=== PATIENT | female | born 1955 | race Caucasian/White ===

== ENCOUNTER 2017-10-30 09:11 | Outpatient (REF) | payer OTHER, SELFPAY ==
[2017-10-30 21:43] LABS: ALT 50 U/L (12-78); AST 28 U/L (15-37); Alkaline Phosphatase 77 U/L (46-116); Anion Gap 5.6 mmol/L (3-11); BUN 9 mg/dL (7-18); Bilirubin, Total 0.5 mg/dL (0.2-1.0); CO2 30.4 mmol/L (21.0-32.0); CREATININE 0.76 mg/dL (0.55-1.02); Chloride 104 mmol/L (98-107); Cholesterol 178 mg/dL (50-200); Glucose 98 mg/dL (70-100); HDL Cholesterol 42 mg/dL (40-60); LDL CHOLESTEROL 116 mg/dL (<100); Potassium 4.5 mmol/L (3.5-5.1); Sodium 140 mmol/L (136-145); TSH 2.97 uIU/mL (0.358-3.74); Total Protein 7.4 g/dL (6.4-8.2); Triglyceride 156 mg/dL (30-150)
== END 2017-10-30 09:31 ==
LOC: NCHCN 09:11
PROVIDERS: PCP Physician Assistant Medical; Visit Provider Physician Assistant Medical
DX: E03.9 Hypothyroidism, unspecified (principal); E78.5 Hyperlipidemia, unspecified
CPT/HCPCS: 80053; 80061; 83721; 84443

== ENCOUNTER 2018-07-30 00:32 | Outpatient (CLI) | payer OTHER, SELFPAY ==
--- NOTE | 2018-07-30 08:52 | DI.MAMMO_ITS ---
SYMPTOM/DIAGNOSIS: SCREENING, [facility], Z00.00 MAMMOGRAMS: Mammograms were interpreted according to the usual protocol including computer analysis with CAD system, tomosynthesis and C view imaging. Comparison is with prior examinations. No suspicious masses or microcalcifications are seen. There is focal asymmetry in the medial left breast seen on the craniocaudad view. This area should be further evaluated with a spot compression view. Ultrasound may be indicated at that time. IMPRESSION: Additional views of the left breast as described above. Category 0, breast density C. MQSA ASSESSMENT OF FINDINGS: Incomplete: Needs additional imaging evaluation. Category 0. Patient will receive a letter notifying them of these results. Bi-RADS category C. The breasts are heterogeneously dense, which may obscure small masses.
== END 2018-07-30 00:52 ==
PROVIDERS: PCP Physician Assistant Medical; Visit Provider Physician Assistant Medical
DX: Z00.00 Encounter for general adult medical examination without abnormal findings (principal); Z12.31 Encounter for screening mammogram for malignant neoplasm of breast; R92.8 Other abnormal and inconclusive findings on diagnostic imaging of breast
CPT/HCPCS: 77063; 77067

== ENCOUNTER 2018-08-08 01:10 | Outpatient (CLI) | payer OTHER, SELFPAY ==
--- NOTE | 2018-08-08 14:16 | DI.MAMMO_ITS ---
SYMPTOMS/DIAGNOSIS: F/U ABNORMAL MAMMO, FOCAL AREA OF ASYMMETRY MEDIAL LEFT BREAST ON CC VIEW ADDITIONAL VIEW OF THE LEFT BREAST: Additional images are interpreted according to the usual protocol including tomosynthesis and 2D imaging. A spot compression view with tomography was performed for a questioned area of nodularity on the recent exam of July,. No persistent abnormality is seen. There has been no change when compared with previous exams. The findings are consistent with overlying fibroglandular tissue. IMPRESSION: Category 1, negative mammogram. Yearly screening mammography is recommended. Breast density category C. MQSA ASSESSMENT OF FINDINGS: Negative. Category 1. Patient will receive a letter notifying them of these results. Bi-RADS category C. The breasts are heterogeneously dense, which may obscure small masses.
== END 2018-08-08 01:30 ==
PROVIDERS: PCP Physician Assistant Medical; Visit Provider Physician Assistant Medical
DX: Z12.31 Encounter for screening mammogram for malignant neoplasm of breast (principal); R92.8 Other abnormal and inconclusive findings on diagnostic imaging of breast; N64.59 Other signs and symptoms in breast
CPT/HCPCS: 77063; 77067

== ENCOUNTER 2019-01-02 13:06 | Outpatient (REF) | payer OTHER, SELFPAY ==
[2019-01-02 21:03] LABS: ALT 55 U/L (14-59); AST 24 U/L (15-37); Albumin 4.3 g/dL (3.4-5.0); Alkaline Phosphatase 87 U/L (46-116); Anion Gap 9.8 mmol/L (3-11); BUN 6 mg/dL (7-18); Bilirubin, Total 0.4 mg/dL (0.2-1.0); CO2 27.2 mmol/L (21.0-32.0); CREATININE 0.75 mg/dL (0.55-1.02); Calcium 9.6 mg/dL (8.5-10.1); Calculated LDL 128 mg/dL; Chloride 104 mmol/L (98-107); Cholesterol 207 mg/dL (50-200); Glucose 104 mg/dL (70-100); HDL Cholesterol 42 mg/dL (40-60); Potassium 4.5 mmol/L (3.5-5.1); Sodium 141 mmol/L (136-145); TSH 3.93 uIU/mL (0.36-3.74); Total Protein 7.8 g/dL (6.4-8.2); Triglyceride 189 mg/dL (30-150)
== END 2019-01-02 13:26 ==
LOC: NCHCN 13:06
PROVIDERS: PCP Physician Assistant Medical; Visit Provider Physician Assistant Medical
DX: E78.5 Hyperlipidemia, unspecified (principal); E03.9 Hypothyroidism, unspecified
CPT/HCPCS: 80053; 80061; 84443

== ENCOUNTER 2019-02-27 09:15 | Outpatient (REF) | payer OTHER, SELFPAY ==
[2019-02-27 20:10] LABS: TSH 1.25 uIU/mL (0.36-3.74)
[2019-02-27 20:16] LABS: Hemoglobin A1C 6.3 % (3.8-5.6)
== END 2019-02-27 09:35 ==
LOC: NCHCN 09:15
PROVIDERS: PCP Physician Assistant Medical; Visit Provider Physician Assistant Medical
DX: Z00.00 Encounter for general adult medical examination without abnormal findings (principal); E03.9 Hypothyroidism, unspecified; R73.9 Hyperglycemia, unspecified
CPT/HCPCS: 83036; 84443

== ENCOUNTER 2019-03-11 02:31 | Outpatient (CLI) | payer OTHER, SELFPAY ==
--- NOTE | 2019-03-11 14:00 | NS.NUTBLAN_ITS ---
Description: Tamia came to my office today for medical nutrition therapy for prediabetes. Recent A1C=6.3%, strong family history of NIDDM. Ht: 5'4 142 LBS, BMI 24. reports losing 8 lbs in last 4 weeks. Tamia works 20 hours per week and goes to gym 3-4 times a week. Diet Recall indicates overall well balanced diet with mostly whole food choices. Reviewed balanced diet for optimal blood sugar and weight management. Provided educational material on Mediterranean Diet with emphasis on fruits, vegetables, lean protein, legumes and unsaturated fats. Encouraged continued exercise 4-5 times weekly. Suspect if Tamia keeps her weight at 135-140 lbs and continues to exercise regularly and follows recommended diet that A1C will normalize. No follow up visit made at this time.
== END 2019-03-11 02:51 ==
PROVIDERS: PCP Physician Assistant Medical; Visit Provider Physician Assistant Medical
DX: R73.03 Prediabetes (principal); Z71.3 Dietary counseling and surveillance
CPT/HCPCS: 97802

== ENCOUNTER 2020-01-08 10:55 | Outpatient (REF) | payer OTHER, MEDICAID, SELFPAY ==
[2020-01-08 20:50] LABS: Hemoglobin A1C 5.9 % (<5.7)
[2020-01-08 21:20] LABS: ALT 42 U/L (14-59); AST 21 U/L (15-37); Albumin 4.3 g/dL (3.4-5.0); Alkaline Phosphatase 77 U/L (46-116); BUN 11 mg/dL (7-18); Bilirubin, Total 0.4 mg/dL (0.2-1.0); CREATININE 0.65 mg/dL (0.55-1.02); Calcium 9.4 mg/dL (8.5-10.1); Chloride 104 mmol/L (98-107); Glucose 88 mg/dL (74-106); Potassium 4.6 mmol/L (3.5-5.1); Sodium 141 mmol/L (136-145); TSH 2.51 uIU/mL (0.36-3.74); Total Protein 7.9 g/dL (6.4-8.2)
[2020-01-08 21:35] LABS: Calculated LDL 110 mg/dL (<100); Cholesterol 180 mg/dL (<200); HDL Cholesterol 44 mg/dL (40-60); Triglyceride 133 mg/dL (<150)
== END 2020-01-08 11:15 ==
LOC: NCHCN 10:55
PROVIDERS: PCP Nurse Practitioner; Visit Provider Physician Assistant Medical
DX: E78.5 Hyperlipidemia, unspecified (principal); E03.9 Hypothyroidism, unspecified
CPT/HCPCS: 80053; 80061; 83036; 84443

== ENCOUNTER 2020-02-09 00:09 | Outpatient (CLI) | payer OTHER, MEDICAID, SELFPAY ==
--- NOTE | 2020-02-09 11:16 | DI.MAMMO_ITS ---
EXAM: MG MAMMO SCREENING CLINICAL HISTORY: SCREENING,Z12.89 TECHNIQUE: Bilateral full field digital CC and MLO mammographic images were obtained with 3D tomosyn thesis and utilizing computer aided detection (CAD). COMPARISON: Available for comparison. FINDINGS: Masses/Architectural Distortion: None seen. Microcalcifications: No suspicious pleomorphic-type are seen. Skin Thickening/Nipple Retraction: None. IMPRESSION: 1. No significant interval change with no specific features of malignancy noted. 2. Unless there is more urgent need, screening mammography is recommended, as per [place] [employer] guidelines. BI-RADS Category 1 - Negative Breast Density - Category C - Heterogeneously dense Breast density category C or D implies that the patient has dense breast tissue. Dense breast tissue is very common and is not abnormal but dense breast tissue can make it harder to find cancer on a ma mmogram. Also, dense breast tissue may increase their breast cancer risk. This information about the result of the mammogram report was provided to the patient to raise their awareness. Use this report when you speak with the patient about their risks for breast cancer, which includes their family hist ory. At that time, you may recommend for more screening tests (Ultrasound or MRI) as they might be us eful based on their risk. A negative radiographic report should not delay biopsy if a dominant or clinically suspicious mass is present. Up to ten percent of cancers are not identified on mammography. A negative report may reinforce clinical impression. Adenosis and dense breasts may obscure an underlying neoplasm. False positive reports average 6 to 10%. Patient will receive a letter notifying them of these results.
== END 2020-02-09 00:29 ==
PROVIDERS: PCP Nurse Practitioner; Visit Provider Physician Assistant Medical
DX: Z12.31 Encounter for screening mammogram for malignant neoplasm of breast (principal)
CPT/HCPCS: 77063; 77067

== ENCOUNTER 2020-04-13 21:36 | Outpatient (REF) | payer OTHER, MEDICAID, SELFPAY ==
[2020-04-14 13:17] LABS: COVID-19 RT-PCR UVMMC Result Negative (Negative)
== END 2020-04-13 21:37 | disposition home or self-care (01) ==
LOC: LBN 21:36
PROVIDERS: PCP Nurse Practitioner; Visit Provider Nurse Practitioner Family
DX: Z20.822 Contact with and (suspected) exposure to COVID-19 (principal)
CPT/HCPCS: U0003

== ENCOUNTER 2020-06-23 18:40 | Emergency (ER) | payer OTHER, SELFPAY ==
[2020-06-23 18:47] VITALS: BP 156/91; PULSE 100; RESP 20; TEMP 36.5; O2SAT 98
--- NOTE | 2020-06-23 20:07 | DI.RAD_ITS ---
Exam(s) XR SHOULDER LT COMPLETE 2+V EXAM: XR SHOULDER LT COMPLETE 2+V CLINICAL HISTORY: fall injury/pain. TECHNIQUE: 2D digital imaging was performed. COMPARISON: No exams were available for comparison FINDINGS: BONES: No acute fracture is present. No bony destructive lesion is seen. JOINTS: There is an anterior shoulder dislocation. SOFT TISSUE: Normal. IMPRESSION: Left anterior shoulder dislocation. DATA REPOSITORY: RADIATION DOSE DELIVERED:
--- NOTE | 2020-06-23 20:15 | DI.RAD_ITS ---
Exam(s) XR SHOULDER LT COMP POST REDUC EXAM: XR SHOULDER LT COMP POST REDUC CLINICAL HISTORY: post reduction. TECHNIQUE: 2D digital imaging was performed. COMPARISON: No exams were available for comparison FINDINGS: BONES: No acute fracture is present. No bony destructive lesion is seen. JOINTS: There has been successful reduction of the glenohumeral joint. Mild degenerative changes are seen at the acromioclavicular joint. SOFT TISSUE: Normal. IMPRESSION: Post reduction films show normal alignment of the glenohumeral joint. DATA REPOSITORY: RADIATION DOSE DELIVERED:
--- NOTE | 2020-06-23 20:19 | DI.VRAD_ITS ---
PROCEDURE INFORMATION: Exam: XR Left Shoulder Exam date and time: 06/23/2020 8:04 PM Age: 64 years old Clinical indication: Other: Fall injury/pain TECHNIQUE: Imaging protocol: XR Left shoulder. Views: 2 or more views. COMPARISON: No relevant prior studies available. FINDINGS: Bones/joints: The humerus is displaced inferiorly, medially, and anteriorly relative to the glenoid fossa. No fracture seen. The AC joint appears intact. Soft tissues: Normal. IMPRESSION: Anterior/inferior dislocation of the humerus as described above. Dictated and Authenticated by: Cain Landin MD. Ordering:ODILIA Rooney MD
--- NOTE | 2020-06-23 20:24 | ED.GENADUL_ITS ---
Discharge Plan Disposition Patient Disposition: HOME Condition: Stable Discharge Details Clinical Impression: Dislocation, shoulder Primary Care Provider: Kimmy Monk ED Provider: Toribio Landon Home Meds and New Rx's Prescriptions: Continued ropinirole 1 mg tablet 1 mg PO BID Qty: 180 RF: 0 simvastatin 20 mg tablet 20 mg PO .QHS Qty: 90 RF: 4 omeprazole 20 mg capsule,delayed release(DR/EC) 20 mg PO DAILY Qty: 90 RF: 4 levothyroxine 75 mcg capsule 75 mcg PO DAILY Qty: 90 RF: 4 venlafaxine 37.5 mg capsule,extended release 24hr 37.5 mg PO DAILY Qty: 90 RF: 4 amoxicillin-pot clavulanate [Augmentin] 875-125 mg tablet 1 tab PO BID Qty: 14 RF: 0 Med Offloader Brace Qty: 1 RF: 0 multivitamin [Daily Vitamin] 1 EACH tablet 1 tab PO DAILY RF: 0 Discharge Instructions Instructions: Shoulder Dislocation (ED) Additional Instructions: It appears as though you dislocated your shoulder during the fall today. I was able to easily reduce your shoulder here in the ER and your postreduction films looks normal. I have placed you on the orthopedic list to help expedite outp atient orthopedic follow-up. Wear sling until reevaluation with orthopedics sometime next week, be sure to do passive range of motion at least 4 times a day to avoid a frozen shoulder. [id number] Tylenol and/or Motrin as directed for discomfort. Cool and/or warm compresses every 2 hours for 20 minutes. Please watch for new or worsening symptoms and return to the ER for any concerns. Referrals: Marcin Howe MD [ [facility] STAFF PHYSICIAN] - Medical Decision Making 64-year-old female, [id number], presents having just fallen on a outstretched arm injuring her left shoulder. Clinically and concerned of a dislocation but would like to obtain x-ray to confirm my suspicion versus bony abnormality. Neuro, vascular, tendon intact X-ray of left shoulder reviewed by me and confirmed by radiology as anterior- inferior dislocation of the humerus Discussed x-ray findings with patient. Patient reports that her pain at this time is mild and she drove herself to the hospital. We discussed reduction options, she is agreeable to attempting reduction without medication or conscious sedation Please see the procedural section for the reduction. Patient tolerated well without complication. Postreduction film reveals successful reduction. Sling applied. Patient placed on the orthopedic list to help expedite outpatient care. Standard discharge and return precautions given. Patient has no additional questions or concerns and is comfortable discharge at this time. Medical Records Medical records reviewed: Yes I reviewed the patient's medical records. Imaging Data Radiologic Study: Attestation: I personally reviewed and interpreted this imaging study as follows: Imaging: X-Ray Radiologist's impression: Initial film reveals a inferior-anterior dislocation. Postreduction film reveals successful reduction. HPI General Mode of arrival: ambulatory . Date/Time Provider Initiated Documentation: 06/23/20 18:49 . Limitations to Documentation: no limitations . Information obtained by: patient . HPI Narrative: This is a 64-year-old female, past medical history that includes anxiety, GERD, hyperlipidemia, hypothyroidism, IBS, who is right-hand dominant. She states that just prior to arrival she had a mechanical trip and fall on a carpet when walking into the [facility]. She states that she landed on her outstretched hand and now has mild left shoulder pain. Denies any other injury, striking her head, numbness, tingling, weakness. She states that the pain is mild, slightly worse with movement, but she is unable to lift her shoulder above 90 degrees. Has not taken any medications for her symptoms Related Data Home Medications Medication Instructions Recorded Confirmed multivitamin [Daily Vitamin] 1 tab PO DAILY 06/11/13 04/13/20 levothyroxine 75 mcg capsule 75 mcg PO DAILY #90 cap 03/17/20 04/13/20 omeprazole 20 mg capsule,delayed 20 mg PO DAILY #90 cap 03/17/20 04/13/20 release ropinirole 1 mg tablet 1 mg PO BID #180 tab 03/17/20 04/13/20 simvastatin 20 mg tablet 20 mg PO .QHS #90 tab 03/17/20 04/13/20 venlafaxine 37.5 mg 37.5 mg PO DAILY #90 cap 03/17/20 04/13/20 capsule,extended release 24 hr amoxicillin 875 mg-potassium 1 tab PO BID #14 tab 04/13/20 04/13/20 clavulanate 125 mg tablet Previous Rx's Medication Instructions Recorded levothyroxine 75 mcg capsule 75 mcg PO DAILY #90 cap 03/17/20 omeprazole 20 mg capsule,delayed 20 mg PO DAILY #90 cap 03/17/20 release ropinirole 1 mg tablet 1 mg PO BID #180 tab 03/17/20 simvastatin 20 mg tablet 20 mg PO .QHS #90 tab 03/17/20 venlafaxine 37.5 mg 37.5 mg PO DAILY #90 cap 03/17/20 capsule,extended release 24 hr amoxicillin 875 mg-potassium 1 tab PO BID #14 tab 04/13/20 clavulanate 125 mg tablet Allergies Allergy/AdvReac Type Severity Reaction Status Date / Time bupropion Allergy Unknown Unverified 04/13/20 14:33 ibuprofen Allergy Unknown Unverified 04/13/20 14:33 sertraline Allergy Unknown Unverified 04/13/20 14:33 aspirin Allergy Hives Unverified 04/13/20 14:33 latex AdvReac Mild itching Unverified 04/13/20 14:33 codeine AdvReac Nausea Unverified 04/13/20 14:33 General Stated Complaint: Orthopedic PAOLO: 4 Review of Systems Constitutional Constitutional: Denies headache(s) and Denies weakness ENT Ears, Nose, Mouth, and Throat: Denies headache(s) and Denies neck pain Cardiovascular Cardiovascular: Denies chest pain and Denies dyspnea Respiratory Respiratory: Denies dyspnea Gastrointestinal Gastrointestinal: Denies abdominal pain, Denies nausea and Denies vomiting Musculoskeletal Musculoskeletal: Reports arthralgias, Denies neck pain, Denies numbness, Reports stiffness and Denies tingling Integumentary/Breasts Skin/Breast: Denies erythema Neurologic Neurologic: Denies headache(s), Denies numbness, Denies tingling and Denies weakness [facility] Medical History Anxiety disorder Diverticulitis Generalized anxiety disorder GERD (gastroesophageal reflux disease) Hx of adenomatous colonic polyps Hyperlipidemia Hyperplastic colonic polyp Hypothyroidism Irritable bowel syndrome Primary osteoarthritis of left knee (09/30/15) Restless leg syndrome Seasonal allergies Surgical History S/P cholecystectomy (~1996) S/P tubal ligation Family History Mother , 90'S Hypertension Stroke Father , 40'S Heart disease Sister , 63 Cancer Diabetes Hyperlipidemia Sister , 63 LUNG CANCER Cancer Hyperlipidemia Sister , 69 Diabetes Heart disease Hyperlipidemia Hypertension Social History Smoking/Tobacco Use Status: Former Tobacco Use tobacco type: cigarettes Quit Date: 02/18/09 Second Hand Exposure: No Smoking risk assessment performed?: Yes Alcohol Intake: never Drug use: Never Substance use type: does not use Caregiver/Support person: No Household members: spouse Housing: house Pets and animals: Yes Pets and animals: dog(s) Sexually active: No Do you think of yourself as: straight/heterosexual Current gender identity: female What is your relationship status?: living with partner How often do you talk on the phone with friends or family?: three or more times per week Do you belong to any clubs or organized social groups?: no Panel score (0-1 are the most socially isolated patients): 2 What type of physical activity do you participate in: walking Duration: 15-30 minutes/day Frequency: daily Lisa/Jehovah'S Witness: Holiness Seatbelt use: always Helmet use: Yes Helmet use: always Drive intox or ride w/intox trackless trolley driver: No Do you feel safe at home: Yes Do you feel safe in your relationship?: Yes Exam Const General: cooperative, healthy appearing, comfortable and no acute distress Orientation: alert, awake and oriented x3 HENMT Head: normal to inspection, normocephalic and atraumatic Eyes General: appearance normal, both eyes and all related structures Conjunctivae: conjunctivae normal Neck Neck: normal visual inspection, full ROM, trachea midline, supple and nontender Resp Effort & Inspection: normal respiratory effort and able to speak in complete sentences Auscultation: clear to auscultation bilaterally Cardio Rate: regular rate Rhythm: regular rhythm Back/Spine/Pelvis Back: No back tenderness Skin General skin exam: no rashes or lesions noted Neuro General: patient alert, patient awake, patient oriented x3, moves all extremities and no focal motor deficits Cognition: normal cognition Speech: speech normal Gait: normal gait Motor: muscle tone normal throughout Sensory Exam: no sensory deficits noted Extrem General: capillary refill normal Left upper extremity: normal capillary refill, shoulder/upper arm Details: abnormal to inspection, tenderness, axillary nerve sensory function normal, abnormal ROM Details: pain with active ROM, pain with passive ROM and with range as follows (Cannot lift over 90 degrees) and deformity Location: of the shoulder joint Location: anteriorly; no swelling, no ecchymosis and no crepitus, elbow/forearm Details: normal to inspection and normal ROM; no tenderness and no swelling, wrist Details: normal to inspection, normal ROM and radial pulse present; no tenderness and no swelling and hand Details: normal to inspection, normal capillary refill, neuromotor exam normal, neurosensory exam normal and tendon exam normal Psych Appearance: grossly normal Mental Status: mental status grossly normal Course Vital Signs Vital signs: Vital Signs Temperature 36.5 C 06/23/20 18:47 Pulse 100 H 06/23/20 18:47 Respiratory Rate 20 06/23/20 18:47 Blood Pressure 156/91 H 06/23/20 18:47 Pulse Oximetry 98 06/23/20 18:47 Temperature 36.5 C 06/23/20 18:47 Temperature Source Temporal Artery Scan 06/23/20 18:47 Pulse 100 H 06/23/20 18:47 Respiratory Rate 20 06/23/20 18:47 Respiratory Effort Non-Labored 06/23/20 18:49 Blood Pressure 156/91 H 06/23/20 18:47 Pulse Oximetry 98 06/23/20 18:47 Oxygen Delivery Method Room Air 06/23/20 18:47 Oxygen Flow Rate 0 06/23/20 18:47 Pain Level 8 06/23/20 18:50 Procedures Orthopedic Joint Reduction Joint #1: Time Out Performed: Yes Side: left Joint Reduction Location: shoulder Analgesia: none Shoulder Technique Used (if applicable): other (Adduction with external rotation) Post-reduction neuro exam: intact Post-reduction vascular: intact Post Reduction X-Ray Obtained: Yes Post Reduction X-Ray Results: reduced Splint Applied: Yes (Sling) Patient Tolerated Procedure: well and no complications
--- NOTE | 2020-06-23 20:38 | DI.VRAD_ITS ---
PROCEDURE INFORMATION: Exam: XR Left Shoulder Exam date and time: 06/23/2020 8:18 PM Age: 64 years old Clinical indication: Other: Post reduction films TECHNIQUE: Imaging protocol: XR Left shoulder. Views: 2 or more views. COMPARISON: CR XR SHOULDER LT COMPLETE 2+V 06/23/2020 9:13 PM FINDINGS: Bones/joints: Mild AC joint hypertrophy is present. Post reduction views show the glenohumeral joint alignment appears normal. No fractures noted. Soft tissues: Normal. IMPRESSION: Post reduction views show normal alignment at the glenohumeral joint Dictated and Authenticated by: Cain Landin MD. Ordering:ODILIA Rooney MD
== END 2020-06-23 20:47 | disposition home or self-care (01) ==
PROVIDERS: Emergency Provider Physician Assistant; PCP Nurse Practitioner
DX: S43.015A Anterior dislocation of left humerus, initial encounter (principal); W18.39XA Other fall on same level, initial encounter
CPT/HCPCS: 23650; 73030

== ENCOUNTER → 2020-08-11 11:44 | Outpatient (BNVA) | payer OTHER, MEDICAID, SELFPAY | PROVIDERS: PCP Nurse Practitioner; Visit Provider Student in an Organized Health Care Education/Training Program | DX: R69 Illness, unspecified (principal) ==

== ENCOUNTER 2021-03-22 03:26 | Outpatient (CLI) | payer MEDICARE, MEDICAID, SELFPAY ==
[2021-03-22 09:58] LABS: Calculated LDL 117 mg/dL (<100); Cholesterol 186 mg/dL (<200); HDL Cholesterol 40 mg/dL (40-60); TSH (W/Ref FT4) 1.78 uIU/mL (0.36-3.74); Triglyceride 148 mg/dL (<150)
== END 2021-03-22 03:27 | disposition home or self-care (01) ==
LOC: LBO 03:26
PROVIDERS: PCP Nurse Practitioner; Visit Provider Nurse Practitioner
DX: F41.1 Generalized anxiety disorder (principal); Z13.6 Encounter for screening for cardiovascular disorders
CPT/HCPCS: 36415; 80061; 84443

== ENCOUNTER 2021-05-02 00:40 | Outpatient (CLI) | payer MEDICARE, MEDICAID, SELFPAY ==
--- NOTE | 2021-05-02 07:05 | DI.MAMMO_ITS ---
Exam(s) MAMMO SCREENING EXAM: MAMMO SCREENING CLINICAL HISTORY: screening,Z12.39 TECHNIQUE: Mammograms were interpreted according to the usual protocol including computer analysis w [employer] CAD system, tomosynthesis and C-view imaging. COMPARISON: 2011 through 2019 FINDINGS: The breasts are composed of heterogeneously dense fibroglandular densities, Breast Density category C . No suspicious masses or suspicious microcalcifications are seen. No skin thickening or abnormal axillary lymph nodes are seen. There has been no significant change from prior exams. IMPRESSION: BI-RADS Category 1, Negative mammogram. Yearly screening mammography is recommended. Breast Density Category C, heterogeneously Dense. The mammogram demonstrates the patient's breast tissue is dense. Dense breast tissue is very common a nd is not abnormal but dense breast tissue can make it harder to find cancer on a mammogram. Also, de nse breast tissue may increase breast cancer risk. This information about the result of the mammogram report was provided to the patient to raise their awareness. Use this report when you speak with the patient about their risks for breast cancer, which includes their family history. At that time, you may recommend additional screening tests (Ultrasound or MRI) as they might be useful based on their r isk. A negative radiographic report should not delay biopsy if a dominant or clinically suspicious mass is present. Up to ten percent of cancers are not identified on mammography. A negative report may reinforce clinical impression. Adenosis and dense breasts may obscure an underlying neoplasm. False positive reports average 6 to 10%.
== END 2021-05-02 01:00 ==
PROVIDERS: PCP Nurse Practitioner; Visit Provider Nurse Practitioner
DX: Z12.31 Encounter for screening mammogram for malignant neoplasm of breast (principal)
CPT/HCPCS: 77063; 77067

== ENCOUNTER 2021-06-13 16:26 | Outpatient (REF) | payer MEDICARE, MEDICAID, SELFPAY ==
[2021-06-15 11:43] LABS: COVID-19 RT-PCR UVMMC Result Negative (Negative)
== END 2021-06-13 16:27 | disposition home or self-care (01) ==
LOC: LBN 16:26
PROVIDERS: PCP Nurse Practitioner; Visit Provider Nurse Practitioner Family
DX: Z20.822 Contact with and (suspected) exposure to COVID-19 (principal)
CPT/HCPCS: U0003; U0005

== ENCOUNTER 2021-06-30 18:47 | Outpatient (REF) | payer MEDICARE, MEDICAID, SELFPAY | END 2021-06-30 18:48 | disposition home or self-care (01) | LOC: LBN 18:47 | PROVIDERS: PCP Nurse Practitioner; Visit Provider Nurse Practitioner Gerontology | DX: N39.0 Urinary tract infection, site not specified (principal) | CPT/HCPCS: 87086 ==

== ENCOUNTER 2022-01-09 16:32 | Outpatient (REF) | payer MEDICARE, MEDICAID, SELFPAY ==
[2022-01-09 19:44] LABS: ALT 45 U/L (14-59); AST 28 U/L (15-37); Albumin 4.1 g/dL (3.4-5.0); Alkaline Phosphatase 81 U/L (46-116); BUN 7 mg/dL (7-18); Bilirubin, Total 0.3 mg/dL (0.2-1.0); CREATININE 0.7 mg/dL (0.55-1.02); Calcium 9.3 mg/dL (8.5-10.1); Calculated LDL 106 mg/dL (<100); Chloride 102 mmol/L (98-107); Cholesterol 183 mg/dL (<200); Estimated GFR 94.73 (mL/min/1.73m2); Ferritin 191 ng/mL (8-252); Glucose 150 mg/dL (74-106); HDL Cholesterol 42 mg/dL (40-60); Potassium 3.5 mmol/L (3.5-5.1); Sodium 138 mmol/L (136-145); TSH 2.77 uIU/mL (0.36-3.74); Total Protein 7.9 g/dL (6.4-8.2); Triglyceride 176 mg/dL (<150)
[2022-01-09 21:08] LABS: Hemoglobin A1C 6.3 % (<5.7)
== END 2022-01-09 16:33 | disposition home or self-care (01) ==
LOC: NCHCN 16:32
PROVIDERS: PCP Nurse Practitioner Family; Visit Provider Physician Assistant Medical
DX: E11.9 Type 2 diabetes mellitus without complications (principal); E03.9 Hypothyroidism, unspecified; E78.5 Hyperlipidemia, unspecified; G25.81 Restless legs syndrome
CPT/HCPCS: 80053; 80061; 82728; 83036; 83735; 84443

== ENCOUNTER 2022-05-04 00:04 | Outpatient (CLI) | payer MEDICARE, MEDICAID, SELFPAY ==
--- NOTE | 2022-05-04 16:02 | DI.MAMMO_ITS ---
Exam(s) MAMMO SCREENING EXAM: MAMMO SCREENING CLINICAL HISTORY: SCREENING, Z12.31 TECHNIQUE: Bilateral full field digital CC and MLO mammographic images were obtained with 3D tomosyn thesis and utilizing computer aided detection (CAD). COMPARISON: Available for comparison. FINDINGS: Masses/Architectural Distortion: There is a new rounded density in the supra-areolar region of the le ft breast on the MLO view. No areas of architectural distortion are present. Microcalcifications: No suspicious pleomorphic-type are seen. Skin Thickening/Nipple Retraction: None. IMPRESSION: 1. New round density in the supra-areolar region of the left breast on the MLO view. 2. Spot compression views requested for further evaluation. Ultrasound may be indicated at that time. BI-RADS Category 0 - Assessment Incomplete: Need additional imaging evaluation Breast Density - Category C - Heterogeneously dense Breast density category C or D implies that the patient has dense breast tissue. Dense breast tissue is very common and is not abnormal but dense breast tissue can make it harder to find cancer on a ma mmogram. Also, dense breast tissue may increase their breast cancer risk. This information about the result of the mammogram report was provided to the patient to raise their awareness. Use this report when you speak with the patient about their risks for breast cancer, which includes their family hist ory. At that time, you may recommend for more screening tests (Ultrasound or MRI) as they might be us eful based on their risk. A negative radiographic report should not delay biopsy if a dominant or clinically suspicious mass is present. Up to ten percent of cancers are not identified on mammography. A negative report may reinforce clinical impression. Adenosis and dense breasts may obscure an underlying neoplasm. False positive reports average 6 to 10%. Patient will receive a letter notifying them of these results.
== END 2022-05-04 00:24 ==
LOC: DI 00:05
PROVIDERS: PCP Nurse Practitioner Family; Visit Provider Physician Assistant Medical
DX: Z12.31 Encounter for screening mammogram for malignant neoplasm of breast (principal); R92.8 Other abnormal and inconclusive findings on diagnostic imaging of breast
CPT/HCPCS: 77063; 77067

== ENCOUNTER 2022-05-10 03:38 | Outpatient (CLI) | payer MEDICARE, MEDICAID, SELFPAY ==
--- NOTE | 2022-05-10 | DI.US_ITS ---
Exam(s) MG MAMMO SCREEN CALL BACK UNI US BREAST LT LIMITED EXAM: MG MAMMO SCREEN CALL BACK UNI and U/S breast LT limited CLINICAL HISTORY: F/U MAMMO, R92.8,NEW ROUNDED DENSITY LTBREAST. TECHNIQUE: Craniocaudal and mediolateral oblique Full Field Digital Mammography views of the left br east with Computer Aided Diagnosis followed by Tomosynthesis and left breast ultrasound. COMPARISON: Comparison is made with prior examinations. FINDINGS: Mammography/Tomosynthesis: Masses/Architectural Distortion: There is a well-circumscribed lucent lesion again seen in the upper inner quadrant of the left breast. There is some thin peripheral calcification. No suspicious isaac s or areas of architectural distortion are identified. Microcalcifictions: No suspicious pleomorphic-type are seen. Skin Thickening/Nipple Retraction: None. Limited left breast US: Echotexture: Normal appearance of the glandular tissue. Shadowing: No suspicious foci. Cyst: There is a 0.4 cm cystic lesion at the 10 o'clock position of the left breast 1 cm from the nip ple. This would appear to correspond to the mammographic abnormality. There is a echogenic area in the wall likely reflecting the calcifications. There is a 2nd smaller 0.2 cm cyst in the same region . Solid lesions: None seen. Ductal dilation: None. IMPRESSION: 1. No evidence of malignancy is noted. 2. Unless there is more urgent need, follow-up screening mammography is recommended, as per [place] [employer] guidelines. 3. The findings were discussed with the patient on the date of the examination. BI-RADS Category 2 - Benign Findings Breast Density - Category C - Heterogeneously dense Breast density Category C or D implies that the patient has dense breast tissue. Dense breast tissue can make it harder to find cancer on a mammogram. Dense breast tissue is also associated with an incr eased risk of breast cancer. This information about the result of the mammogram report was provided to the patient to raise their awareness. Use this report when you speak with the patient about their risks for breast cancer, which includes their family history. At that time, you may recommend additional screening tests (Ultrasoun d or MRI) as these tests may add significant information. A negative radiographic report should not delay biopsy if a dominant or clinically suspicious mass is present. Up to ten percent of cancers are not identified on mammography. A negative report may reinforce clinical impression. Adenosis and dense breasts may obscure an underlying neoplasm. False positive reports average 6 to 10%. Patient will receive a letter notifying them of these results.
== END 2022-05-10 03:58 ==
LOC: DI 03:38
PROVIDERS: PCP Nurse Practitioner Family; Visit Provider Physician Assistant Medical
DX: Z12.31 Encounter for screening mammogram for malignant neoplasm of breast (principal); R92.8 Other abnormal and inconclusive findings on diagnostic imaging of breast; N63.22 Unspecified lump in the left breast, upper inner quadrant; N60.12 Diffuse cystic mastopathy of left breast
CPT/HCPCS: 76642; 77063; 77067

== ENCOUNTER → 2023-02-22 01:03 | Outpatient (CLI) | payer MEDICARE, SELFPAY ==
--- OUTSIDE RECORDS SUMMARY | 2023-02-22 01:04 | XMS_ITS | Continuity of Care Document ---
Author Name Unknown Organization [facility] Ambulatory Clinics Address [address] [place] [address] Care Team Providers Care Chief Security And Safety Officer Name Role Phone RAHEEM GALLAGHER Primary Care Physicia n Encounter [facility] NBR [id number] Date(s): 01/15/22 - 01/15/22 [facility] Ambulatory [facility] [address] [place] [address] [place] Social History Social History Type Response Sex Female Patient Care team information Personnel Name: RAHEEM GALLAGHER Address: Address: [address] [place], [place] [address]
--- OUTSIDE RECORDS SUMMARY | 2023-02-22 01:04 | XMS_ITS | Continuity of Care Document ---
Author Name Unknown Organization [facility] Address [address] [place] [id number] Care Team Providers Care Assistant Name Role Phone Enrique Patel Primary Care Physician Encounter [facility] [id number] Date(s): 07/04/22 - 07/04/[address] [phone] [place] Discharge Disposition: Home or Self Care Attending Physician: HYUN LY MD Admitting Physician: HYUN LY MD Referring Physician: Enrique Patel Social History Social History Type Response Sex Female Outpatient Note * Event Display: Ambulatory Clinical Summary Patient Care team information Care Team Personnel Name: Enrique Patel Position: No Access Member Role: Primary Care Physician Address: Address: [address] [place] [id number] [place] Care Team Related Persons Name: SHANI CRISOSTOMO
--- OUTSIDE RECORDS SUMMARY | 2023-02-22 01:04 | XMS_ITS | Continuity of Care Document ---
Author Name Unknown Organization [facility] Address [address] [place] [phone] Encounter [facility] NBR [id number] Date(s): 01/06/22 - 01/06/22 [facility] Occupational Health [address] [place] [phone] Encounter Diagnosis Encounter for examination required by Department of Transportation (DOT) (Discharge Diagnosis) - 01/06/22 Discharge Disposition: Home or Self Care Attending Physician: Luis Daniel Lobo. GERALD Physician Outpatient Note * Luis Daniel Lobo. PA: PERFORM Event Display: Office Clinic Note Physician Authored Date: [id number] GLADIS LOZANO :1955 Age:66 years Sex:Female Visit Date:01/06/2022 History of Present Illness No active medical conditions. ??No physical limitations which would impact her ability to drive.?? She does not have her glasses. ??She is getting them fixed.?? See documentation. Assessment/Plan 1.??Encounter for examination required by Department of Transportation (DOT)??Z02.89 At this time patient does not meet qualifications as her vision is 20/50. ??Her glasses are currently nonfunctional.?? She will check in with ophthalmology on Saturday for new glasses and get a letter showing vision greater than 20/40.?? At that time I will be happy to sign her DOT card??for 2-year??qualification. Problem List/Past Medical History Ongoing No qualifying data Historical No qualifying data Medications No active medications Allergies No active allergies Electronically Signed on 01/06/22 12:32 PM Luis Daniel DUARTE
--- NOTE | 2023-02-22 06:53 | DI.US_ITS ---
Exam(s) US ABDOMEN LIMITED EXAM: US ABDOMEN LIMITED CLINICAL HISTORY: RUQ abd pain,r10.9 TECHNIQUE: Ultrasound abdomen performed using standard protocol. COMPARISON: No exams were available for comparison FINDINGS: LIVER: Normal size. Increasedechogenicity and decreased through transmission, consistent with severe hepatic steatosis. Posterior portions of the liver are not visible.. No focal liver lesions are se en.. GALLBLADDER: Status post cholecystectomy. BILIARY SYSTEM: No intrahepatic or extrahepatic biliary ductal dilation. RIGHT KIDNEY: Normal size. No evidence of renal calculi. No evidence of hydronephrosis. No suspicious renal mass. No cyst identified. PANCREAS: Normal where visualized. ABDOMINAL AORTA AND IVC: Visualized portions normal caliber. ASCITES: None seen. IMPRESSION: Moderate to severe hepatic steatosis. Status post cholecystectomy. No biliary dilatation DATA REPOSITORY:
== END ==
PROVIDERS: PCP Nurse Practitioner Family; Visit Provider Nurse Practitioner Family
DX: K76.0 Fatty (change of) liver, not elsewhere classified (principal)
CPT/HCPCS: 76705

== ENCOUNTER 2023-02-25 05:20 | Outpatient (CLI) | payer MEDICARE, SELFPAY ==
[2023-02-25 12:56] LABS: HCT 43.5 % (36.0-46.0); HGB 13.8 g/dL (11.2-15.7); MCH 27.7 pg (27.0-33.0); MCHC 31.7 % (32.0-36.0); MCV 87 fL (80-95); MPV 10.3 fL (8.0-11.0); Platelet Count 315 10^3/uL (130-400); RBC 4.98 10^6/uL (3.93-5.22); RDW 13.6 % (11.7-14.6); RDW-SD 43.4 fL; WBC 7.05 10^3/uL (4.4-10.8)
[2023-02-25 13:08] LABS: ALT 65 U/L (14-59); AST 31 U/L (15-37); Albumin 3.9 g/dL (3.4-5.0); Alkaline Phosphatase 85 U/L (46-116); Anion Gap 5.6 mmol/L (3-11); BUN 9 mg/dL (7-18); Bilirubin, Total 0.5 mg/dL (0.2-1.0); CO2 31.4 mmol/L (21.0-32.0); CREATININE 0.8 mg/dL (0.55-1.02); Calcium 9.7 mg/dL (8.5-10.1); Chloride 103 mmol/L (98-107); Estimated GFR 80.21 (mL/min/1.73m2); Glucose 94 mg/dL (74-106); Potassium 3.8 mmol/L (3.5-5.1); Sodium 140 mmol/L (136-145)
== END 2023-02-25 05:21 | disposition home or self-care (01) ==
LOC: LOS 05:21
PROVIDERS: PCP Nurse Practitioner Family; Visit Provider Nurse Practitioner Family
DX: R10.9 Unspecified abdominal pain (principal)
CPT/HCPCS: 36415; 80053; 85027

== ENCOUNTER 2023-04-22 05:12 | Outpatient (CLI) | payer MEDICARE, SELFPAY ==
[2023-04-22 13:05] LABS: GGT 48 U/L (5-55)
== END 2023-04-22 05:13 | disposition home or self-care (01) ==
LOC: LOS 05:12
PROVIDERS: PCP Nurse Practitioner Family; Visit Provider Nurse Practitioner Family
DX: K76.0 Fatty (change of) liver, not elsewhere classified (principal)
CPT/HCPCS: 36415; 82977; 83915

== ENCOUNTER → 2023-06-13 03:53 | Outpatient (CLI) | payer MEDICARE, SELFPAY ==
--- NOTE | 2023-06-13 07:00 | DI.MAMMO_ITS ---
Exam(s) MAMMO SCREENING EXAM: MAMMO SCREENING CLINICAL HISTORY: screening,z12.39. TECHNIQUE: Bilateral full field digital CC and MLO mammographic images were obtained with 3D tomosyn thesis and utilizing computer aided detection (CAD). COMPARISON: Prior mammograms were reviewed. FINDINGS: Fibroglandular tissue pattern is again noted to be moderately dense. There are no new spiculated masses nor malignant appearing microcalcification groups. A new benign peripherally calcified small cyst is noted in the left breast. There is no significant architectural distortion nor skin thickening-retraction. IMPRESSION: No radiographic evidence of malignancy. BI-RADS Category 1 - Negative Breast Density - Category C - Heterogeneously dense Breast density Category C or D implies that the patient has dense breast tissue. Dense breast tissue can make it harder to find cancer on a mammogram. Dense breast tissue is also associated with an incr eased risk of breast cancer. This information about the result of the mammogram report was provided to the patient to raise their awareness. Use this report when you speak with the patient about their risks for breast cancer, which includes their family history. At that time, you may recommend additional screening tests (Ultrasoun d or MRI) as these tests may add significant information. A negative radiographic report should not delay biopsy if a dominant or clinically suspicious mass is present. Up to ten percent of cancers are not identified on mammography. A negative report may reinforce clinical impression. Adenosis and dense breasts may obscure an underlying neoplasm. False positive reports average 6 to 10%. Patient will receive a letter notifying them of these results.
== END ==
PROVIDERS: PCP Nurse Practitioner Family; Visit Provider Nurse Practitioner Family
DX: Z12.31 Encounter for screening mammogram for malignant neoplasm of breast (principal); R92.333 Mammographic heterogeneous density, bilateral breasts
CPT/HCPCS: 77063; 77067

== ENCOUNTER → 2023-06-20 03:27 | Outpatient (CLI) | payer MEDICARE, SELFPAY ==
--- NOTE | 2023-06-20 08:30 | DI.DEXA_ITS ---
Exam(s) XR DEXA BONE DENSITY W/WO DRE EXAM: XR DEXA BONE DENSITY W/WO DRE CLINICAL HISTORY: screening, POSTMENOPAUSAL STATUS, Z78.0 TECHNIQUE: Routine DEXA evaluation of the lumbar spine, hip, or forearm. COMPARISON: No exams were available for comparison FINDINGS: Performed on a Hologic unit. Lateral image: No compression fracture evident. Lumbar Spine total T-score: -4.1. This is in the osteoporosis range Hip total T-score:-2.6. This is also in the osteoporosis range. Independent reading at the level of the femoral neck yields T-score of -2.0 Forearm total T-score: -3.1. This is also in the osteoporosis range. IMPRESSION: Bone mineral density measures in the osteoporosis range. Fracture risk is high. Note: Any spine fracture indicates 5x risk for subsequent spine fracture and 2x risk for subsequent h ip fracture. World Health Organization criteria for BMD interpretation classify patients: Normal...... T- Score at or above -1.0 Osteopenic... T- Score between -1.0 and -2.5 Osteoporosis... T-Score at or below -2.5
== END ==
PROVIDERS: PCP Nurse Practitioner Family; Visit Provider Nurse Practitioner Family
DX: Z78.0 Asymptomatic menopausal state (principal); Z13.820 Encounter for screening for osteoporosis; M81.0 Age-related osteoporosis without current pathological fracture
CPT/HCPCS: 77080

== ENCOUNTER 2023-07-29 06:07 | Outpatient (CLI) | payer MEDICARE, SELFPAY ==
[2023-07-29 12:55] LABS: TSH (W/Ref FT4) 1.88 uIU/mL (0.36-3.74)
[2023-07-29 21:42] LABS: Iron 85 ug/dL (50-170); Total Iron Binding Capacity 280 ug/dL (250-450); Transferrin Sat 30 % (15-50)
[2023-07-29 22:11] LABS: Ferritin 150 ng/mL (8-252); Folate > 20.0 ng/mL (8.6-20.0); Vitamin B12 682 pg/mL (193-986)
== END 2023-07-29 06:08 | disposition home or self-care (01) ==
LOC: LOS 06:08 → LBN 21:02
PROVIDERS: PCP Nurse Practitioner Family; Visit Provider Nurse Practitioner Family
DX: E03.9 Hypothyroidism, unspecified (principal); M79.661 Pain in right lower leg; M79.662 Pain in left lower leg; R53.83 Other fatigue
CPT/HCPCS: 36415; 82607; 82728; 82746; 83540; 83550; 84443

== ENCOUNTER 2024-06-10 03:34 | Outpatient (CLI) | payer BC, SELFPAY ==
[2024-06-10 13:08] LABS: ALT 30 U/L (14-59); AST 19 U/L (15-37); Albumin 3.8 g/dL (3.4-5.0); Alkaline Phosphatase 69 U/L (46-116); Anion Gap 2.8 mmol/L (3-11); BUN 11 mg/dL (7-18); Bilirubin, Total 0.5 mg/dL (0.2-1.0); CO2 32.2 mmol/L (21.0-32.0); CREATININE 0.8 mg/dL (0.55-1.02); Calcium 9.6 mg/dL (8.5-10.1); Calculated LDL 118 mg/dL (<100); Chloride 106 mmol/L (98-107); Cholesterol 198 mg/dL (<200); Estimated GFR 79.71 (mL/min/1.73m2); Glucose 102 mg/dL (74-106); HDL Cholesterol 55 mg/dL (>or=50); Sodium 141 mmol/L (136-145); Total Protein 7.5 g/dL (6.4-8.2); Triglyceride 129 mg/dL (<150)
== END 2024-06-10 03:35 | disposition home or self-care (01) ==
LOC: LOS 03:34
PROVIDERS: PCP Nurse Practitioner Family; Visit Provider Nurse Practitioner Family
DX: F41.1 Generalized anxiety disorder; E11.9 Type 2 diabetes mellitus without complications; M81.0 Age-related osteoporosis without current pathological fracture; K21.9 Gastro-esophageal reflux disease without esophagitis
CPT/HCPCS: 36415; 80053; 80061; 84443

== ENCOUNTER 2024-07-17 00:27 | Outpatient (CLI) | payer BC, SELFPAY ==
--- NOTE | 2024-07-17 07:30 | DI.MAMMO_ITS ---
Exam(s) MAMMO SCREENING EXAM: MAMMO SCREENING CLINICAL HISTORY: screening,z12.39. TECHNIQUE: Bilateral full field digital CC and MLO mammographic images were obtained with 3D tomosyn thesis and utilizing computer aided detection (CAD). COMPARISON: Prior mammograms were reviewed. FINDINGS: There has been no significant change in the appearance and distribution of the fibroglandular tissue. There are no new spiculated masses nor new malignant appearing microcalcification groups. There is no significant architectural distortion nor skin thickening-retraction. IMPRESSION: No radiographic evidence of malignancy. BI-RADS Category 1 - Negative Breast Density - Category C - The breast are heterogeneously dense, which may obscure small masses. Breast density Category C or D implies that the patient has dense breast tissue. Dense breast tissue can make it harder to find cancer on a mammogram. Dense breast tissue is also associated with an incr eased risk of breast cancer. This information about the result of the mammogram report was provided to the patient to raise their awareness. Use this report when you speak with the patient about their risks for breast cancer, which includes their family history. At that time, you may recommend additional screening tests (Ultrasoun d or MRI) as these tests may add significant information. A negative radiographic report should not delay biopsy if a dominant or clinically suspicious mass is present. Up to ten percent of cancers are not identified on mammography. A negative report may reinforce clinical impression. Adenosis and dense breasts may obscure an underlying neoplasm. False positive reports average 6 to 10%. Patient will receive a letter notifying them of these results.
== END 2024-07-17 00:47 ==
LOC: DI 00:27
PROVIDERS: PCP Nurse Practitioner Family; Visit Provider Nurse Practitioner Family
DX: Z12.31 Encounter for screening mammogram for malignant neoplasm of breast (principal); R92.333 Mammographic heterogeneous density, bilateral breasts
CPT/HCPCS: 77063; 77067